=== PATIENT | male | born 1935 ===

== ENCOUNTER 2017-07-07 17:23 | Emergency (ER) | payer BC, MEDICARE ==
--- NOTE | 2017-07-07 17:35 | UC ---
Bite Injury/Animal HPI - HPI Summary HPI Summary: 82 YEAR OLD MALE PRESENTS WITH COMPLAINS OF CAT BITE ON HIS LEFT HAND. - History of Current Complaint Stated Complaint: CAT BITE Time Seen by Provider: 07/07/17 17:35 Hx Obtained From: Patient Severity Currently: Moderate Severity Initially: Severe Pain Scale Used: 0-10 Numeric - 5 Onset/Duration: Sudden Onset - Allergies/Home Medications Allergies/Adverse Reactions: Allergies Allergy/AdvReac Type Severity Reaction Status Date / Time No Known Allergies Allergy Verified 07/07/17 17:45 Home Medications: Home Medications Aspirin [Aspirin 81 MG TAB] 81 mg PO DAILY 07/07/17 [History Confirmed 07/07/17] Eye Vitamin 1 tab PO BID 07/07/17 [History] Hydrochlorothiazide TAB* [Hydrodiuril TAB*] 25 mg PO DAILY 07/07/17 [History Confirmed 07/07/17] Lisinopril TAB* [Prinivil TAB*] 10 mg PO DAILY 07/07/17 [History Confirmed 07/07] Multiple Vitamins W/ Minerals [Preservision Areds 2 + Mu] 1 cap PO DAILY [History Confirmed 07/07/17] [place]-3 Fatty Acids [Fish Oil] 1,000 mg PO DAILY 07/07/17 [History Confirmed ] Potassium Chlor TAB (NF) [Kaon-Cl-10 TAB (NF)] 10 meq PO DAILY 07/07/17 [ History Confirmed 07/07/17] Ranitidine HCl 150 mg PO DAILY 07/07/17 [History Confirmed 07/07/17] Simvastatin (NF) [Zocor (NF)] 40 mg PO DAILY 07/07/17 [History Confirmed ] PMH/Surg Hx/FS Hx/Imm Hx Previously Healthy: Yes Review of Systems Constitutional: Negative Skin: Other - LEFT HAND CAT BITE PUNCTURE WOUND Eyes: Negative ENT: Negative Respiratory: Negative Cardiovascular: Negative Gastrointestinal: Negative Genitourinary: Negative Motor: Negative Neurovascular: Negative Musculoskeletal: Negative Neurological: Negative Psychological: Negative Is Patient Immunocompromised?: Yes All Other Systems Reviewed And Are Negative: Yes Physical Exam Triage Information Reviewed: Yes Vital Signs Reviewed: Yes Eye Exam: Normal ENT Exam: Normal Dental Exam: Normal Neck exam: Normal Neck: Positive: 1 Respiratory Exam: Normal Cardiovascular Exam: Normal Abdominal Exam: Normal Musculoskeletal Exam: Normal Neurological Exam: Normal Psychological Exam: Normal Skin: Positive: Other - LEFT THUMB PUNCTURE WOUND Bite Injury Course/Dx - Differential Dx/Diagnosis Provider Diagnoses: LEFT HAND CAT BITE Discharge - Discharge Plan Condition: Stable Disposition: HOME Prescriptions: Amoxicillin/Clavulanate TAB* [Augmentin TAB 875*] 875 mg PO BID #20 tab Ibuprofen TAB* [Motrin TAB* 800 MG] 800 mg PO Q8H #30 tab Patient Education Materials: Animal Bite (ED) Referrals: Augustin Rdz MD [Primary Care Provider] - Tomy Benson MD [Medical Doctor] - Additional Instructions: please go to er if swelling of left thumb get worse
[2017-07-07] MEDS ORDERED: Ibuprofen TAB* 400 MG PO ONE (18:04)
[2017-07-07] MEDS ORDERED: cefTRIAXone VIAL(*) 1,000 MG VIAL IM ONE (18:04)
[2017-07-07] MEDS ORDERED: Lidocaine 1% MPF* 2 ML VIAL ONE (18:13)
--- NOTE | 2017-07-07 18:24 | RAD ---
INDICATION: Pain and numbness at the left thumb after a cat bite COMPARISON: None TECHNIQUE: 3 views of the left thumb were obtained. FINDINGS: The bones are normal alignment. Joint spaces appear maintained. No fracture is seen. IMPRESSION: No acute fracture or dislocation. If the patient's symptoms persist, follow-up imaging is recommended.
== END 2017-07-07 18:40 | disposition home or self-care (01) ==
LOC: UCCORT 17:23
DX: S61.432A Puncture wound without foreign body of left hand, initial encounter (principal); W55.01XA Bitten by cat, initial encounter; Y93.9 Activity, unspecified; Y92.9 Unspecified place or not applicable; Z79.82 Long term (current) use of aspirin
CPT/HCPCS: 96372; 99212; A9270-GY; G0463; J0696